=== PATIENT | female | born 1965 | race Two or more races ===

== ENCOUNTER 2024-12-12 22:18 | Emergency (ER) | payer OTHER ==
[~2024-12-12] VITALS: Ht 167.6 cm; Wt 79.4 kg
[2024-12-12] MEDS ORDERED: IOHEXOL-300 100 ML VIAL IV ONE (23:29)
[2024-12-12] MEDS ORDERED: IV NS 0.9% 250 ML IV ONE (23:30)
[2024-12-12] MEDS ORDERED: CT SWABBABLE VALVE TRANS SET 1 EA INFUS.SET MC ONE (23:30)
[2024-12-12 23:31] LABS: PLATELET COUNT (AUTO) 301 K/uL (150-450); RED BLOOD CELL COUNT(AUTO) 4.17 MIL/uL (4.0-5.2); RED CELL DISTRIBUTION WIDTH 18.4 % (11.5-15.0); WHITE BLOOD COUNT (AUTO) 7.2 K/uL (4.3-11.0)
[2024-12-12 23:37] LABS: CALCIUM, SERUM 9.4 mg/dL (8.5-10.1); CREATININE 1.0 mg/dL (0.6-1.3); SODIUM SERUM 142 mmol/L (136-145); UREA NITROGEN, BLOOD 19 mg/dL (7-18)
[2024-12-12 23:39] LABS: ABG BASE EXCESS 4.2 mmol/L (-2.0-3.0); ABG OXYGEN SATURATION 98.8 % (94.0-98.0); ABG PCO2 46.4 mmHg (32.0-45.0); ABG PH 7.418 (7.350-7.450); ABG PO2 171.7 mmHg (83.0-108.0); ABG TOTAL HEMOGLOBIN 10.2 G/dL (12.0-16.0); FRACTIONATED INSPIRED OXYGEN 40.0 %; PEEP,BG 5 cm H2O; SET RATE, BG 12.0; SITE, ABG RIGHT RADIAL; VT, ABG 400 mL
[2024-12-12 23:50] LABS: ASPARTATE AMINOTRANSFERASE 22 U/L (15-37); LACTIC ACID 2.0 mmol/L (0.4-2.0); NT-PRO BNP 431 pg/mL (0-125); TOTAL PROTEIN, SERUM 8.1 g/dL (6.4-8.2)
[2024-12-13 00:19] LABS: APPEARANCE,URINE SLIGHTLY CLOUDY (CLEAR); BLOOD, URINE 1+ Ery/uL (NEGATIVE); LEUKOCYTE ESTERASE ,URINE 3+ (NEGATIVE); NITRITE, URINE NEGATIVE (NEGATIVE); UGLUCOSE NEGATIVE (NEGATIVE)
[2024-12-13 00:33] LABS: ADD URINE CULTURE YES
[2024-12-13] MEDS: CEFTRIAXONE 1 G in IV D5W 50 ML IV ONE (00:54)
[2024-12-13] MEDS ORDERED: CEFTRIAXONE 1GM BAG (ER ONLY) 50 ML IV ONE (00:54)
[2024-12-13 01:58] LABS: LACTIC ACID REFLEX 2.3 mmol/L (0.4-1.9)
[2024-12-13 07:34] VITALS: BP 128/73; TEMP 97.6; O2SAT 100
== END 2024-12-13 07:38 | disposition short-term general hospital (02) ==
LOC: ER 22:21
DX: J95.03 Malfunction of tracheostomy stoma (principal); G93.1 Anoxic brain damage, not elsewhere classified; E11.9 Type 2 diabetes mellitus without complications; I50.9 Heart failure, unspecified; Z86.73 Personal history of transient ischemic attack (TIA), and cerebral infarction without residual deficits
CPT/HCPCS: 99285; 96365; 82803; 70491; 85025; 87040; 83605 ×2; 81001; 36415 ×2; 80053; 84484; 83880; 36600; 94799 ×2; 31720; 99082; 82248; 87077; 87086; 87186 ×2; 94002; J7050; Q9967; J0696 ×2; J7060